=== PATIENT | male | born 1955 | race Caucasian/White ===

== ENCOUNTER → 2016-12-30 | Outpatient (CLI) | payer BC ==
--- NOTE | 2016-12-30 11:05 | RADRPT ---
PROCEDURE: XR Pelvis. CLINICAL INDICATION: Hip pain TECHNIQUE: Single AP view performed. COMPARISON: No prior studies are available for comparison. FINDINGS: There is moderate bilateral hip osteoarthrosis. This is associated with joint space narrowing, subch ondral sclerosis and osteophytosis. There is normal osseous mineralization. No fractures or osseou s lesions are identified. There is a 15 mm sclerotic bone island in the right femoral neck. The so ft tissues are unremarkable. IMPRESSION: 15 mm sclerotic bone island in the right femoral neck Moderate bilateral hip osteoarthrosis. RPTAT: [facility] .Marin Millan MD, Date Time Electronically viewed and signed by .Marin Millan MD, on 12/30/2016 11:04 .B/
--- NOTE | 2016-12-30 11:06 | RADRPT ---
PROCEDURE: XR right hip. CLINICAL INDICATION: Hip pain TECHNIQUE: AP and lateral views performed COMPARISON: No prior studies are available for comparison. FINDINGS: There is moderate right hip osteoarthrosis. This is associated with joint space narrowing, subchondr al sclerosis and osteophytosis. There is normal mineralization. There is a 15 mm sclerotic bone isl and in the right femoral neck. No fractures or osseous lesions are identified. The soft tissues ar e unremarkable. IMPRESSION: Moderate right hip osteoarthrosis. RPTAT: [facility] .Marin Millan MD, MD Date Time Electronically viewed and signed by .Marin Millan MD, MD on 12/30/2016 11:05 .B/
== END | disposition home or self-care (01) ==
LOC: HKI 09:19
PROVIDERS: ATTEND Orthopaedic Surgery
DX: M25.551 Pain in right hip (principal); M16.11 Unilateral primary osteoarthritis, right hip
CPT/HCPCS: 72170; 73502; G0463

== ENCOUNTER → 2017-04-26 | Outpatient (CLI) | payer BC | END | disposition home or self-care (01) | LOC: HKI 08:42 | PROVIDERS: ATTEND Orthopaedic Surgery | DX: M16.11 Unilateral primary osteoarthritis, right hip (principal); I10 Essential (primary) hypertension; I51.9 Heart disease, unspecified | CPT/HCPCS: G0463 ==